=== PATIENT | female | born 1970 | race Caucasian/White ===

== ENCOUNTER → 2017-05-24 | Day surgery (SDC) | payer OTHER ==
[~2017-05-24] VITALS: Ht 162.6 cm; Wt 91.0 kg
[2017-05-24] VITALS (10 sets, daily range): BP systolic 139–166; BP diastolic 80–94; PULSE 70–83; TEMP 37–37.2; O2SAT 96–99; Ht 162.6 cm; Wt 91.0 kg
[~2017-05-24] MED LIST: ACETAMINOPHEN 500 MG TAB PO ONE; ACETAMINOPHEN 500 MG TAB PO PRN; LISI-461 PO; LSN5 PO; NAPR1TAB9 PO; TRAM-10 PO
--- NOTE | 2017-05-24 10:51 | Discharge Instructions ---
Discharge Instructions Procedure Procedure Date: May 24, 2017. Reason for visit: Lumbar Stenosis, Disc Herniation. Discharge Discharge Date: May 24, 2017. Discharge Diagnosis: Back pain. Status post lumbar puncture and myelogram. Instructions Activity Recommendations: No limitations, 48 Hours of decreased exertion Return to School/Work: no limitations Recommended Home Diet: No Limitations, Resume Previous Diet Allergies Coded Allergies: Hydromorphone (Verified Allergy, Mild, MILD ITCHING, 05/24/17) Morphine (Verified Allergy, Mild, ITCHING, 05/24/17) [place] Recommendations: Call your doctor if: * Temperature above 101 degrees * Pain not relieved by pain medicine ordered * There is increased drainage or redness from any incision * You have any unanswered questions or concerns. Your Doctors Instructions noted above were prepared by provider Rahul Laboy. Patient Signature Section: Patient Instructions Signature Page Usha Luz Patient (or Guardian) Signature/Date: I have read and understand the instructions given to me by my caregivers. Caregiver/RN/Doctor Signature/Date: The above-named patient and/or guardian has received patient instructions on this date. + Original Patient Signature Page (only) stays with chart. Please make copy for patient.
--- NOTE | 2017-05-24 10:59 | DIAGNOSTIC IMAGING REPORT ---
MYELOGRAM,SUPER/INTER LUMBAR CLINICAL HISTORY: 46-year-old female presents with ongoing lumbar back pain. PROCEDURE: The risks, benefits, and alternatives to the procedure is discussed with the patient who voiced understanding. Written informed consent was obtained. The patient was placed prone on the fluoroscopy table. The lower back was prepped and draped in the usual sterile fashion. 1% lidocaine was used for local anesthesia. A 20-gauge spinal needle was inserted into the L4-L5 interlaminar space, upon return of clear colorless cerebrospinal fluid 12 mL of Isovue-M 200 was slowly injected into the thecal space. The patient tolerated the procedure well. There were no immediate complications. The patient was then transported to CT. Fluoroscopy time: 0.8 minutes IMPRESSION: Fluoroscopic guided lumbar puncture and myelogram for CT. There were no immediate complications. The above report was generated using voice recognition software. It may contain grammatical, syntax or spelling errors. Electronically signed by: Charles Laboy M.D. 05/24/2017 10:58 AM Dictated Date/Time: 05/24/2017 10:54 AM
--- NOTE | 2017-05-24 12:17 | DIAGNOSTIC IMAGING REPORT ---
LUMBAR SPINE WITH CT DOSE: 1151.66 mGy.cm HISTORY: 46-year-old female presents with low back pain with history of prior fusion. TECHNIQUE: Multiple axial CT images of the lumbar spine were obtained with the use of intrathecal contrast. Coronal and sagittal reformats were generated from the axial data set and submitted for review. COMPARISON: CT lumbar spine 09/29/2014. FINDINGS: There are 5 lumbar-type vertebral bodies segments present. The vertebral body heights appear well maintained. No evidence of acute fracture or subluxation is appreciated. Prior laminectomy at L5. Posterior interbody edie and screw fixation with discectomy noted at L5-S1. No evidence of hardware complication or malalignment. Imaged intra-abdominal and intrapelvic structures demonstrate no acute abnormality. Punctate calculus of the inferior pole left kidney is noted. T12-L1: No evidence of disc bulge or central canal stenosis is seen. The neural foramina appear patent bilaterally. L1-L2: No evidence of disc bulge or central canal stenosis is seen. The neural foramina appear patent bilaterally. L2-L3: No evidence of disc bulge or central canal stenosis is seen. The neural foramina appear patent bilaterally. Mild facet arthropathy and ligamentum flavum redundancy. L3-L4: Circumferential annular disc bulge with superimposed broad-based right foraminal disc protrusion is present causing mild central canal, right lateral recess and right foraminal narrowing. The left foramen is patent. Mild facet arthropathy and ligamentum flavum redundancy also noted. L4-L5: There is 2 mm anterolisthesis of L4 on L5. Facet arthropathy and ligamentum flavum redundancy is noted at this level in conjunction with a small annular fissure with broad-based posterior disc bulge which causes mild central canal, mild to moderate right and mild left foraminal stenosis. L5-S1: Prior discectomy and fusion at this level as above. Posterior spondylitic spurring favoring the central and right lateral recess regions extending into the proximal right neural foramen abuts the ventral thecal sac and right S1 nerve root causing moderate right lateral recess and right foraminal narrowing. Left foramen is patent. IMPRESSION: 1. Prior laminectomy at L5 with posterior interbody edie and screw fixation with discectomy at L5-S1. No evidence of hardware complication. 2. 2 mm anterolisthesis L4 on L5. 3. Prominent posterior osteophytic spurring at L5-S1 favoring the right lateral recess and proximal right neuroforamen abutting the right S1 nerve root and causes moderate right lateral recess and moderate right foraminal narrowing. 4. Discogenic degeneration at L4-L5 with facet arthropathy and ligamentum flavum redundancy causes mild central canal, mild to moderate right and mild left foraminal stenosis. The above report was generated using voice recognition software. It may contain grammatical, syntax or spelling errors. Electronically signed by: Charles Laboy M.D. 05/24/2017 12:15 PM Dictated Date/Time: 05/24/2017 12:03 PM
== END | disposition home or self-care (01) ==
LOC: C.ACU 08:17
PROVIDERS: ATTEND Orthopaedic Surgery Orthopaedic Surgery of the Spine
DX: M48.06 Spinal stenosis, lumbar region (principal)

== ENCOUNTER 2017-07-18 08:34 | Observation (INO) | payer OTHER ==
[2017-07-07 15:33] VITALS: BMI 33.0
[2017-07-07 15:46] VITALS: BMI 33.0
[2017-07-13 17:40] LABS: BASO % 0.6 %; BASO ABS # 0.04 K/uL (0-0.2); COMPLETE YES; EOS % 0.4 %; HEMATOCRIT 43.5 % (37-47); IG% 0.3 %; LYMPH % 27.1 %; LYMPH ABS # 1.88 K/uL (1.2-3.4); MEAN CELL VOLUME 92.4 fL (80-100); MEAN CORPUSCULAR HEMOGLOBIN 31.2 pg (25-34); MEAN CORPUSCULAR HGB CONC 33.8 g/dl (32-36); MONO % 11.7 %; NEUT % 59.9 %; PLATELET COUNT 256 K/uL (130-400); RED BLOOD COUNT 4.71 M/uL (4.2-5.4); WHITE BLOOD COUNT 6.93 K/uL (4.8-10.8)
[2017-07-13 18:15] LABS: PREG INTERNAL NEGATIVE QC NEG CLEAR BACKGROUND; PREG INTERNAL POSITIVE QC POS CONTROL LINE
[~2017-07-18] VITALS: Ht 165.1 cm; Wt 90.9 kg
[2017-07-18] VITALS (11 sets, daily range): BP systolic 135–175; BP diastolic 82–118; PULSE 69–96; TEMP 36.6–37; O2SAT 93–97; Ht 165.1 cm; Wt 90.9 kg
[~2017-07-18 08:34] MED LIST changes: -ACETAMINOPHEN 500 MG TAB PO ONE; -ACETAMINOPHEN 500 MG TAB PO PRN; +CEFAZOLIN 2000 MG/60 ML D5W 60 ML IV SCH; +FENTANYL CITRATE INJ 50 MCG/1 ML 2 ML VIAL ONE; +LACTATED RINGER'S 1000ML 1,000 ML IV SCH; -LISI-461 PO; -LSN5 PO; +MIDAZOLAM HCL 1 MG/ML 2ML VIAL ONE; +NSS 1000ML IV SCH
[2017-07-18] MEDS ORDERED: THROMBIN FOR SOLN 20000 UNIT KIT ONE (10:20)
[2017-07-18] MEDS ORDERED: GELATIN SPONGE SZ 100 ONE (10:20)
[2017-07-18] MEDS ORDERED: BACITRACIN 50000 UNIT VIAL ONE (10:21)
[2017-07-18] MEDS ORDERED: VANCOMYCIN HCL 1000MG/20ML VIAL ONE (10:21)
--- NOTE | 2017-07-18 10:25 | History and Physical ---
History & Physical Date Jul 18, 2017. Chief Complaint Back and lower extremity pain History of Present Illness The patient is a 46 year old female with complaints of back and lower extremity pain. Numbness and tingling and paresthesias Past Medical/Surgical History Medical Problems: (1) Bowel obstruction (2) Kidney stones Surgical Problems: (1) H/O gastric bypass (2) History of Additional History Hepatic Disease: No Endocrine Disorder: No Kidney Disease: Yes (history of kidney stones) Hypertension: Yes Heart Disease: No Bleeding Tendencies: No Infectious Diseases: No Allergies Coded Allergies: Hydromorphone (Verified Allergy, Mild, MILD ITCHING, 07/18/17) Morphine (Verified Allergy, Mild, ITCHING, 07/18/17) Home Medications Scheduled PRN Naproxen (Aleve), 220 MG PO DAILY PRN for Pain Tramadol (Ultram), 50 MG PO Q6 PRN for Pain Physical Examination Skin: + pertinent finding (small rash of tenia corpora ) Eyes: normal inspection ENT: normal ENT inspection Head: normocephalic Neck: supple Respiratory/Chest: lungs clear Cardiovascular: regular rate, rhythm Abdomen / GI: normal bowel sounds Back: + pertinent finding (well-healed's bar spine incision name with percussion) Extremities: + pertinent finding (pain with straight leg raising some numbness and tingling) Neurologic/Psych: + pertinent finding Diagnosis Spinal stenosis lumbar spine ASA Classification: ASA Class III (laminectomy L4-L5 and foraminotomies L5-S1)
[2017-07-18] MEDS ORDERED: BUPIVACAINE/EPINEPHRINE 0.5% MPF 1:200,000 30 ML VIAL ONE (10:30)
--- NOTE | 2017-07-18 10:41 | History & Physical Bridge Note ---
H&P Re-Evaluation Bridge Note: I have examined the patient, reviewed the History & Physical and in the interval since the performance of the History & Physical I have noted the following changes of clinical significance: No changes noted Plan: LAMINECTOMY L4-5, FORAMENOTOMY L5-S1
[2017-07-18] MEDS ORDERED: LARYING-O-JET KIT (LTA) ONE ×2 (11:25)
[2017-07-18] MEDS ORDERED: PROPOFOL IV EMULSION 10 MG/ML 20 ML VIAL IV ONE (11:25)
[2017-07-18] MEDS ORDERED: LABETALOL HCL IV 5 MG/ML 20ML IV ONE ×2 (11:25→11:49)
[2017-07-18] MEDS ORDERED: CISATRACURIUM BESYLATE IV SOLN 2 MG/ML 10 ML VIAL ONE (11:25)
[2017-07-18] MEDS ORDERED: DiphenhydrAMINE HCL 50 MG/ML VIAL ONE ×2 (11:25→13:18)
[2017-07-18] MEDS ORDERED: GLYCOPYRROLATE INJ 0.2 MG/ML VIAL ONE (11:25)
[2017-07-18] MEDS ORDERED: LIDOCAINE HCL 2% 2 ML VIAL (20MG/ML) ONE (11:25)
[2017-07-18] MEDS ORDERED: NEOSTIGMINE METHYLSULFATE 5 MG/5 ML SYR ONE (11:25)
[2017-07-18] MEDS ORDERED: HYDROmorphone INJ 2 MG/ML SYR/VIAL ONE (11:28)
--- NOTE | 2017-07-18 12:51 | [facility] Operative Report ---
Operative Report Operative Date Jul 18, 2017. 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 Patient was placed prone on the Yonny table rubbed with Betadine prep with ChloraPrep. Draped her sterile A skin incision fashion incision place a deep self-retaining retractor preserved all [place] structures we had no into the nerve roots we successfully decompressed the nerve roots circumferentially L4 5 5 S1 foraminotomies provided we concentrated on the more symptomatic side which was the right. Please with the physical decompression of visibility of the nerve roots there was no pressure the nerves were probed. Then irrigated thoroughly with antibiotic impregnated solution Rashard 600 mL placed some Gelfoam over the dural structures interbody vancomycin placed over the dural structures as well closed over a Hemovac drain. Fascia closed with 2- 0 Vicryl suture and 3-0 nylon used on the skin surface The patient tolerated the procedure well again no complications Estimated blood loss 500 mL Sponge and needle count correct at the close of procedure. There were no complications thank you I attest to the content of the Intraoperative Record and any orders documented therein. Any exceptions are noted below.
[2017-07-18] MEDS ORDERED: LORAZEPAM INJ 1 MG in SYRINGE 0 ML IV PRN (13:00)
[2017-07-18] MEDS ORDERED: OXYCODONE/ACETAMINOPHEN 5-325 TAB PO PRN ×2 (13:00)
[2017-07-18] MEDS ORDERED: PROMETHAZINE HCL INJ 12.5 MG in SODIUM CHLORIDE 0.9% 50ML 50 ML IV PRN ×2 (13:00→13:45)
[2017-07-18] MEDS ORDERED: METOCLOPRAMIDE HCL INJ 5 MG/ML 2 ML VIAL IV PRN (13:00)
[2017-07-18] MEDS ORDERED: ONDANSETRON INJ 2 MG/ML 2 ML VIAL IV PRN ×2 (13:00→13:45)
[2017-07-18] MEDS ORDERED: ACETAMINOPHEN 325 MG TAB PO PRN (13:00)
[2017-07-18] MEDS ORDERED: MAGNESIUM HYDROXIDE SUSP 30 ML UDC PO PRN (13:00)
--- NOTE | 2017-07-18 13:14 | DIAGNOSTIC IMAGING REPORT ---
SPINE ONE VIEW, ANY LEVEL CLINICAL HISTORY: L4-5 LAMEY/L5-S1 FORAMINOTOMY COMPARISON STUDY: CT lumbar myelogram May 24, 2017. Fluoroscopy time: 2.5 seconds. FINDINGS: Single lateral fluoroscopic intraoperative image demonstrates a previous L5-S1 discectomy with bilateral pedicle screws at the L5 and S1 levels. IMPRESSION: Intraoperative lateral fluoroscopic image of the lumbar spine, as discussed above. Electronically signed by: Osman Kaminski M.D. 07/18/2017 1:13 PM Dictated Date/Time: 07/18/2017 1:03 PM
[2017-07-18] MEDS ORDERED: FENTANYL CITRATE INJ 50 MCG/1 ML 2 ML VIAL ONE (13:22)
[2017-07-18 13:25] LABS: HEMATOCRIT 39.7 % (37-47)
[2017-07-18] MEDS ORDERED: KETOROLAC TROMETHAMINE 30 MG/ML VIAL ONE (13:40)
[2017-07-18] MEDS ORDERED: EpHEDrine SULFATE INJ 50 MG/ML AMP IV PRN (13:45)
[2017-07-18] MEDS ORDERED: DiphenhydrAMINE HCL 50 MG/ML VIAL IV PRN (13:45)
[2017-07-18] MEDS ORDERED: FENTANYL CITRATE INJ 50 MCG/1 ML 2 ML VIAL IV PRN (13:45)
[2017-07-18] MEDS ORDERED: KETOROLAC TROMETHAMINE 30 MG/ML VIAL IV. PRN (13:45)
[2017-07-18] MEDS ORDERED: FLUMAZENIL 0.1 MG/1 ML 10 ML VIAL IV PRN (13:45)
[2017-07-18] MEDS ORDERED: NALOXONE HCL 0.4 MG/1 ML VIAL/CARP IV PRN (13:45)
[2017-07-18] MEDS ORDERED: ATROPINE SULFATE 0.1 MG/ML 5ML SYR IV PRN (13:45)
[2017-07-18] MEDS ORDERED: DEXAMETHASONE SOD INJ 4 MG/ML VIAL ONE (13:55)
[2017-07-18] MEDS ORDERED: ONDANSETRON INJ 2 MG/ML 2 ML VIAL ONE (13:55)
--- NOTE | 2017-07-18 13:57 | Anesthesiology Progress Note ---
Anesthesia Post Op Note Date & Time Jul 18, 2017 at 13:57 Vital Signs Pain Intensity: 3 Vital Signs Past 12 Hours Date Time Temp Pulse Resp B/P (MAP) Pulse Ox O2 Delivery O2 Flow Rate FiO2 07/18/17 13:50 81 17 151/97 93 Room Air 07/18/17 13:40 78 13 154/91 93 Room Air 07/18/17 13:30 79 12 167/108 93 Room Air 07/18/17 13:20 85 13 206/126 96 Room Air 07/18/17 13:10 80 13 133/83 98 Nasal Cannula 4 07/18/17 13:00 80 12 142/87 99 Nasal Cannula 4 07/18/17 12:50 36.8 93 19 162/97 99 Nasal Cannula 4 07/18/17 08:59 36.9 96 18 175/118 (137) Room Air 96 Notes Mental Status: alert / awake / arousable, participated in evaluation Pt Amnestic to Procedure: Yes Nausea / Vomiting: adequately controlled Pain: adequately controlled Airway Patency, RR, SpO2: stable & adequate BP & HR: stable & adequate Hydration State: stable & adequate Anesthetic Complications: no major complications apparent
[2017-07-18] MEDS ORDERED: IV FLUIDS COMPLETED PRN (15:00)
[2017-07-18] MEDS ORDERED: OXYCODONE/ACETAMINOPHEN 5-325 TAB ONE (15:03)
[2017-07-18] MEDS ORDERED: OXYCODONE/ACETAMINOPHEN 10/325MG TAB PO PRN (15:30)
[2017-07-18] MEDS: HYDROmorphone INJ 1 MG/ML SYR IV PRN ×2 (17:32→23:57)
[2017-07-18] MEDS: CEFAZOLIN IV 2,000 MG in DEXTROSE 5% 50ML 50 ML IV SCH (20:24)
[2017-07-18] MEDS: KETOROLAC TROMETHAMINE 30 MG/ML VIAL IV SCH (20:24)
[2017-07-18] MEDS: OXYCODONE/ACETAMINOPHEN 10/325MG TAB PO PRN (20:34)
[2017-07-18] MEDS: DiphenhydrAMINE HCL 50 MG/ML VIAL IV PRN (21:54)
[2017-07-18] MEDS: DEXAMETHASONE INJ 10 MG in SYRINGE 0 ML IV SCH (21:55)
[2017-07-19] MEDS: LORAZEPAM 1 MG TAB PO PRN (02:19)
[2017-07-19] MEDS: KETOROLAC TROMETHAMINE 30 MG/ML VIAL IV SCH ×4 (02:20→20:11)
[2017-07-19 03:00] VITALS: BP 145/91; PULSE 72; TEMP 36.8; O2SAT 95
[2017-07-19] MEDS: CEFAZOLIN IV 2,000 MG in DEXTROSE 5% 50ML 50 ML IV SCH ×2 (04:07→12:34)
[2017-07-19] MEDS: OXYCODONE/ACETAMINOPHEN 10/325MG TAB PO PRN ×2 (04:14→08:21)
[2017-07-19] MEDS: DEXAMETHASONE INJ 10 MG in SYRINGE 0 ML IV SCH ×3 (05:35→22:49)
[2017-07-19] MEDS ORDERED: BISACODYL 10 MG SUPP PR PRN (06:00)
[2017-07-19] MEDS ORDERED: BISACODYL 5 MG TABEC PO PRN (06:00)
[2017-07-19 07:22] VITALS: BP 131/84; PULSE 68; TEMP 36.9; O2SAT 95
--- NOTE | 2017-07-19 08:08 | Anesthesiology Progress Note ---
Anesthesia Post Op Note Date & Time Jul 19, 2017 at 08:08 Vital Signs Vital Signs Past 12 Hours Date Time Temp Pulse Resp B/P (MAP) Pulse Ox O2 Delivery O2 Flow Rate FiO2 07/19/17 07:22 36.9 68 16 131/84 (100) 95 Room Air 07/19/17 03:00 36.8 72 18 145/91 (109) 95 Room Air 07/18/17 23:50 Room Air 07/18/17 22:54 36.6 71 18 135/85 (102) 97 Room Air Notes Mental Status: alert / awake / arousable, participated in evaluation Pt Amnestic to Procedure: Yes Nausea / Vomiting: adequately controlled Pain: adequately controlled Airway Patency, RR, SpO2: stable & adequate BP & HR: stable & adequate Hydration State: stable & adequate Anesthetic Complications: no major complications apparent
[2017-07-19] MEDS: POLYETHYLENE (MIRALAX) 17 GM PACK PO SCH (08:20)
[2017-07-19 11:54] VITALS: BP 148/93; PULSE 66; TEMP 36.6; O2SAT 97
[2017-07-19] MEDS: DiphenhydrAMINE HCL 50 MG/ML VIAL IV PRN (12:34)
[2017-07-19] MEDS: HYDROmorphone INJ 1 MG/ML SYR IV PRN ×2 (13:21→22:49)
--- NOTE | 2017-07-19 15:24 | Discharge Instructions ---
Discharge Instructions Date of Service Jul 19, 2017. Admission Reason for Admission: Lumbar Spinal Stenosis Discharge Discharge Diagnosis / Problem: same Discharge Goals Goal(s): Improve function Activity Recommendations Activity Limitations: as noted below Lifting Limitations: gradually increase as tolerated Exercise/Sports Limitations: until after follow-up appointment May Resume Sexual Activity: after follow-up appointment Shower/Bathe: keep incision dry just be careful. . Instructions / Follow-Up Instructions / Follow-Up MEDICATIONS: Please take your prescriptions as instructed at your pre-op appointment. SPECIAL CARE: The following information is intended to answer some of the common questions and concerns regarding your surgery. Each patient is an individual and receives individual counselling throughout the course of treatment, from diagnosis to surgery all the way through recovery. What follows is not an exhaustive list, but should be a useful guide to some of the common questions and concerns patients have regarding their surgeries. These are not provided to keep you from calling us; rather, they give you something accurate and concrete to reference as you recover from your procedure. If you need us, we are available to you. As always, if you are not sure about something, call us at [phone]. MEDICAL EMERGENCIES: For these conditions, call 911 or go to your local hospital-based Emergency Department - not [facility] or equivalent. * Paralysis * Severe chest pain or difficulty breathing * Swelling or redness of either leg Spine procedures can be rather complex and though complications are rare, they do occur. In such cases, effective advice regarding emergency situations cannot always be addressed over the telephone. You may be referred to the emergency department for more effective management of your problem. Activity Limitations: It is important to give your body time to heal, so please limit your activities : * In general, don't do anything that moves your spine too much. You should avoid contact sports, twisting or heavy lifting while you recover. * 5-10 pounds is all you should attempt to lift. * You should not plan on driving for approximately 3 weeks and you should avoid traveling more than 30-45 minutes at a time. Longer trips should be broken down with walking breaks spaced appropriately. * Physical therapy is not usually required. * Walking and good posture practices will help you recover and regain your function. * Avoid straining or sudden changes in position. * In general, the goal is to take it easy and recover. Don't cause any new problems. Just relax. Showers: * Do not take a bath, use a Jacuzzi or hot tub or otherwise submerge your incision. * It is usually safe to take a shower 4-5 days after your surgery. * Your incision does not require any special creams or ointments. * Simply clean it with soap and water, dry and re-dress with a clean bandage afterwards. Incision: * Keep incision clean, dry and protected until your first follow-up appointment. * Some amount of drainage and redness is normal. Any drainage should be fairly clear and not have a foul odor. * If you feel anything is wrong or you have excessive drainage, please call us. * Your stitches and guicho will be removed 10-14 days after your surgery. At the time of your first post-op visit. * Neck surgeries are typically closed with a suture underneath the skin. The steri-strips over the incision should be maintained until we see you in the office. Bracing: * You may be provided with a back or neck brace to encourage good posture and prevent injury. It will remind you not to do too much as you heal and will alert others to the fact that you have had a surgery. * Back braces may be removed for showers and when you are resting at home. They must be worn when you are walking around for any period of time or for travel. * For neck surgery, you will likely be provided with two cervical collars. The soft collar ([place] or foam rubber) is worn most commonly throughout the day and while sleeping. The plastic collar (provided at the hospital) is for showering/bathing. * Except while eating, collars should remain in place. More specifically, bracing is provided for a purpose and should be worn. * Please obtain your brace or collars prior to your operation and bring them to the hospital with you on the day of surgery. * You should also bring your collars to your post-op appointment with Dr. Huntley. You should always take good care of your body and practice healthy habits, especially following surgery. You should: * Follow your doctor's treatment plan * Sit and stand properly with good posture (ears over shoulders, shoulders over hips) Don't slouch * Learn to lift correctly * Exercise regularly (low-impact aerobic exercise is especially good, but check with your doctor first) * Generally, be up and walking for 5-10 minutes at a time at least 3-4 times per day from the day you get home * Increasing walking to tolerance until you can walk for 20-30 minutes at a time * Attain and maintain a healthy body weight * Eat healthy foods ( a well-balanced, low-fat diet rich in fruits and vegetables) and get enough calcium * Avoid excessive use of alcohol When to call our office - If you notice any of the following: * Increased pain not relieve by pain medicine * Fevers greater then 100 degrees F, chills or flu symptoms * Increased redness around incision * Drainage from the incision that is not clear * Any foul smelling drainage * Swelling or fluid collection beneath the skin Miscellaneous: * In the hospital, you may be given a walker or cane for support while walking. These are temporary needs and are intended to prevent injuries due to falls. You may discontinue them when you feel strong and steady enough on your feet. * Sleep in a comfortable position. We find that many patients find a lounge chair or recliner with several pillows to be beneficial in the early post-operative period. * The support stockings should be used for 7-10 days and may be discontinued when you are back to walking more and conducting usual household activities. No problem is insignificant. We are here to help you and get you well. Contact us at [phone]. Definitions: Foraminotomy: If part of the disc or a bone spur (osteophyte) is pressing on a nerve as it leaves the vertebra (through an exit called the foramen), a foraminotomy may be done. Otomy means "to make an opening." A foraminotomy is making the opening of the foramen larger, so the nerve can exit without being compressed. Laminotomy: Similar to the foraminotomy, a laminotomy makes a larger opening, this time in your bony plate protecting your spinal canal and spinal cord (the lamina). The lamina may be pressing on your nerve, so the surgeon may make more room for the nerves using a laminotomy. Laminectomy: Sometimes, a laminotomy is not sufficient. The surgeon may need to remove all or part of the lamina. This procedure is called a laminectomy. This can often be done at many levels without any harmful effects. Current Hospital Diet Patient's current hospital diet: Regular Diet Discharge Diet Recommended Diet: Regular Diet Procedures Procedures Performed: L4-L5 Laminectomy, L5-S1 Foraminotomy Pending Studies Studies pending at discharge: no Medical Emergencies . Who to Call and When: Medical Emergencies: If at any time you feel your situation is an emergency, please call 911 immediately. . Non-Emergent Contact Non-Emergency issues call your: Surgeon . "Provider Documentation" section prepared by Adele Huntley. . VTE Core Measure Inpt VTE Proph given/why not?: Treatment not indicated
[2017-07-19 16:10] VITALS: BP 150/92; PULSE 67; TEMP 36.7; O2SAT 98
[2017-07-19 23:10] VITALS: BP 131/85; PULSE 74; TEMP 36.9; O2SAT 98
[2017-07-20] MEDS: KETOROLAC TROMETHAMINE 30 MG/ML VIAL IV SCH ×2 (01:20→07:35)
[2017-07-20] MEDS: LORAZEPAM 1 MG TAB PO PRN ×2 (01:20→08:48)
[2017-07-20 05:32] VITALS: BP_SYST 147; BP_SYST 154; BP_DIAS 100; BP_DIAS 96; PULSE 63; TEMP 36.6; O2SAT 99
[2017-07-20] MEDS: DEXAMETHASONE INJ 10 MG in SYRINGE 0 ML IV SCH (05:38)
[2017-07-20] MEDS: HYDROmorphone INJ 1 MG/ML SYR IV PRN (05:39)
[2017-07-20 07:20] VITALS: O2SAT 99
[2017-07-20] MEDS: OXYCODONE/ACETAMINOPHEN 10/325MG TAB PO PRN ×2 (07:32→12:47)
--- NOTE | 2017-07-20 08:04 | DISCHARGE SUMMARY ---
SUBJECTIVE: Moderate complaints of pain, some anxiety, no chest pain, shortness of breath, no confusion. OBJECTIVE: 39.7 hematocrit, which is probably only slightly low from her blood loss anemia. Hypertension, mild to at most moderate. ASSESSMENT: Status post lumbar spine reconstructive surgery. DISPOSITION: We will let Usha go home later on today. I am going to have the medicine team see her in regards to her hypertension and concern over anemia. She will be sent home hopefully around lunchtime today. She has a prescription on her chart. Followup appointment. Essentially keep her wound clean, dry, and let herself recover. Instructions have been given here in the hospital and in the office.
[2017-07-20 08:27] VITALS: BP 164/103
[2017-07-20] MEDS: POLYETHYLENE (MIRALAX) 17 GM PACK PO SCH (08:49)
[2017-07-20] MEDS ORDERED: LISI-461 PO (09:47)
[2017-07-20] MEDS ORDERED: LSN5 PO (10:07)
--- NOTE | 2017-07-20 10:08 | Discharge Instructions ---
Discharge Instructions Date of Service Jul 20, 2017. Admission Reason for Admission: Lumbar Spinal Stenosis Discharge Discharge Diagnosis / Problem: Hypertension Discharge Goals Goal(s): Decrease discomfort, Improve function, Increase independence Activity Recommendations Activity Limitations: per Instructions/Follow-up section (Per orthopedics) . Instructions / Follow-Up Instructions / Follow-Up Hypertension: - You will be provided with a prescription for Lisinopril 5 mg daily. This medication is to help control your blood pressure. - Recommend keeping a log of blood pressures to give to your family doctor. -- We will help establish you with a family doctor to monitor your blood pressure and make adjustments if necessary - If you develop lightheadedness/dizziness when talking this medication, please discuss with your doctor -- This medication can cause low blood pressures and keeping the log will help show this. Anemia: - You labs here show that you are not anemic at this time. - Recommend to continue to follow with hematology (blood doctors) for this and discuss with your new family doctor - Would recommend updated iron studies and blood counts at that time and if transfusions are necessary that can be arranged Current Hospital Diet Patient's current hospital diet: Regular Diet Discharge Diet Recommended Diet: Regular Diet Procedures Procedures Performed: L4-L5 Laminectomy, L5-S1 Foraminotomy Pending Studies Studies pending at discharge: no Medical Emergencies . Who to Call and When: Medical Emergencies: If at any time you feel your situation is an emergency, please call 911 immediately. . Non-Emergent Contact Non-Emergency issues call your: Primary Care Provider Call Non-Emergent contact if: you have a fever, your pain is concerning you, you have any medication questions . . "Provider Documentation" section prepared by Amita Cronin. . VTE Core Measure Inpt VTE Proph given/why not?: Treatment not indicated
[2017-07-20 11:35] VITALS: BP 164/103; PULSE 63; TEMP 36.6; O2SAT 99
--- NOTE | 2017-07-20 13:44 | Medical Consult ---
Consultation Date of Consultation: Jul 20, 2017. Attending Physician: Adeel Huntley DO Reason for Consultation: Hypertension and Anemia History of Present Illness Ms. Luz is a 46 y/o female with PMHx of MARGARETTE, S/P Gastric Bypass, and spinal stenosis who is S/P L4-L5 Laminectomy with L5-S1 Foraminotomy on 07/[address] Huntley. Patient reports having elevated BP readings even as outpatient. Relates most of that to pain and some intermittent anxiety. She has noticed she occ. has readings in the 200s systolically. She has not been on any blood pressure medications in the past. She also reports the need for intermittent iron infusions due to MARGARETTE from gastric bypass. Patient is not anemic on labs in hospital and saw a group billing coordinator prior to surgery. After discussing with patient we will initiate Lisinopril 5 mg daily and provide an Rx for an electronic BP cuff for monitoring. Assisted patient to establish with [facility] as PCP. Past Medical/Surgical History 1. MARGARETTE 2. S/P Gastric Bypass 3. Lumbar Spinal Stenosis Family History Cancer Diabetes mellitus Heart disease Hypertension Lung disease Social History Smoking Status: Never Smoker Smokeless Tobacco Use: No Alcohol Use: socially Marital Status: Housing Status: lives with family Occupation Status: employed Allergies Coded Allergies: Hydromorphone (Verified Allergy, Mild, MILD ITCHING, 07/18/17) Morphine (Verified Allergy, Mild, ITCHING, 07/18/17) Current Inpatient Medications Current Inpatient Medications Medications (Trade) Dose Ordered Sig/Juan Route Start Time Stop Time Status Last Admin Dose Admin Acetaminophen (Tylenol Tab) 650 mg Q6H PRN PO 07/18/17 13:00 08/17/17 12:59 Hydromorphone HCl (Dilaudid Inj) 1 mg Q3H PRN IV 07/18/17 13:00 08/01/17 12:59 07/20/17 05:39 1 MG Hydromorphone HCl (Dilaudid Inj) 1.5 mg Q3H PRN IV 07/18/17 13:00 08/01/17 12:59 07/18/17 23:57 1.5 MG Ketorolac Tromethamine (Toradol Inj) 30 mg Q6H IV 07/18/17 20:00 07/23/17 19:59 07/20/17 07:35 30 MG Promethazine HCl 12.5 mg/Sodium Chloride 50.5 ml @ 202 mls/hr Q6H PRN IV 07/18/17 13:00 08/17/17 12:59 Ondansetron HCl (Zofran Inj) 4 mg Q6H PRN IV 07/18/17 13:00 08/17/17 12:59 07/19/17 22:58 4 MG Metoclopramide HCl (Reglan Inj) 10 mg Q6H PRN IV 07/18/17 13:00 08/17/17 12:59 Lorazepam (Ativan Tab) 1 mg Q6H PRN PO 07/18/17 13:00 08/17/17 12:59 07/20/17 08:48 1 MG Lorazepam 1 mg/ Syringe 0.5 ml @ 1 mls/min Q6H PRN IV 07/18/17 13:00 08/17/17 12:59 Polyethylene (Miralax Powder Packet) 17 gm DAILY PO 07/19/17 09:00 08/18/17 08:59 07/20/17 08:49 17 GM Bisacodyl (Dulcolax Tab) 5 mg DAILY PRN PO 07/19/17 06:00 08/18/17 05:59 Bisacodyl (Dulcolax Supp) 10 mg DAILY PRN AR 07/19/17 06:00 08/18/17 05:59 Magnesium Hydroxide (Milk Of Magnesia Susp) 30 ml DAILY PRN PO 07/18/17 13:00 08/17/17 12:59 Diphenhydramine HCl (Benadryl Cap) 25 mg Q6H PRN PO 07/18/17 13:00 08/17/17 12:59 07/20/17 05:12 25 MG Diphenhydramine HCl (Benadryl Inj) 25 mg Q6H PRN IV 07/18/17 13:00 08/17/17 12:59 07/19/17 12:34 25 MG Miscellaneous (Iv Fluids Completed) 1 ea PRN PRN N/A 07/18/17 15:00 07/18/18 14:59 Oxycodone/ Acetaminophen (Percocet 10-325MG Tab) 1 tab Q4H PRN PO 07/18/17 15:30 08/01/17 15:29 Oxycodone/ Acetaminophen (Percocet 10-325MG Tab) 2 tab Q4H PRN PO 07/18/17 15:30 08/01/17 15:29 07/20/17 12:47 2 TAB Review of Systems Constitutional: No fever, No chills, No fatigue ENT: No nasal symptoms, No sore throat, No trouble swallowing Respiratory: No cough, No shortness of breath Cardiovascular: No chest pain, No palpitations Abdomen: No pain, No nausea, No vomiting, No diarrhea, No constipation Musculoskeletal: No swelling, No calf pain Genitourinary - Female: No dysuria Hematologic / Lymphatic: No abnormal bleeding/bruising, No clotting problems Integumentary: No rash Physical Exam Date Time Temp Pulse Resp B/P (MAP) Pulse Ox O2 Delivery O2 Flow Rate FiO2 07/20/17 11:35 36.6 63 16 99 Room Air 07/20/17 08:27 164/103 (123) 07/20/17 07:20 99 Room Air 07/20/17 05:32 36.6 63 16 154/100 (118) 99 Room Air 147/96 (113) 07/19/17 23:10 36.9 74 16 131/85 (100) 98 Room Air 07/19/17 20:04 Room Air 07/19/17 16:10 36.7 67 18 150/92 (111) 98 Room Air General Appearance: WD/WN, no apparent distress Head: normocephalic, atraumatic Eyes: sclerae normal ENT: hearing grossly normal Neck: supple, no JVD, trachea midline Respiratory/Chest: lungs clear, normal breath sounds, no respiratory distress, no accessory muscle use Cardiovascular: regular rate, rhythm, no gallop, no murmur Abdomen/GI: normal bowel sounds, non tender, soft Extremities/Musculoskelatal: no calf tenderness, no pedal edema Neurologic/Psych: alert, oriented x 3 Skin: normal color, warm/dry Assessment & Plan Ms. Dawson is a 46 y/o female who is S/P lumbar surgery by Dr. Huntley on 07/20 S/P Laminectomy L4-L5 and Foraminotomy of L5-S1 on 07/18: - Management per primary - Dr. Huntley Hypertension: - Denies being on previous anti-hypertensives - reporting systolic pressures in 200s - some may be pain response and some underlying anxiety but would benefit from treatment - Lisinopril 5 mg daily - Rx provided and will have her follow-up with [facility] within a week -- Recommend keeping a log of BPs to present to PCP - would defer further med adjustments to PCP MARGARETTE S/P Gastric Bypass: - Is not anemic on labs in-hospital - will defer further studies to PCP or [facility] - IV iron infusions per their discretion - no acute need for in-hospital treatment Disposition: - Case management will assist with PCP establishment for ongoing evaluation - From a medical standpoint patient is optimal for D/C per primary team - Rx for Lisinopril and electronic BP cuff provided Thank you for the consultation and opportunity to assist in care. Additional Copies To Jake Xiong MD Reviewed: Pt Seen/Exam by Me History Pt is doing well. Has had elevated BP for some time but does not have a PCP and did not follow up with this. 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 Taking a lot of NSAIDs and had a lot of pain leading to her back surgery. No chest pain or SOB, no neuro issues. Agree with HPI/ROS as noted. General Appearance: WD/WN, no apparent distress Respiratory: normal breath sounds, no respiratory distress Cardiovascular: normal peripheral pulses, regular rate, rhythm Gastrointestinal: non tender, soft Extremities: non-tender, no pedal edema Neurologic/Psychiatric: alert, normal mood/affect, oriented x 3 Skin Characteristics: normal color, warm/dry Assessment/Plan Agree with plan as outlined above. Uncontrolled HTN Start lisinopril Advised to get a digital BP cuff for home use and f/u with PCP PCP set up for pt prior to d/c with [facility]
== END 2017-07-20 13:45 | disposition home or self-care (01) ==
LOC: C.ACU 08:34 → C.3E 12:52 → ENRESERV 13:24
PROVIDERS: ADMIT Orthopaedic Surgery Orthopaedic Surgery of the Spine; ATTEND Orthopaedic Surgery Orthopaedic Surgery of the Spine
DX: M48.07 Spinal stenosis, lumbosacral region (principal); I10 Essential (primary) hypertension; Z79.899 Other long term (current) drug therapy; Z98.84 Bariatric surgery status